=== PATIENT | female | born 1975 | race Caucasian/White ===

== ENCOUNTER 2017-05-30 18:33 | Observation (INO) | payer OTHER ==
[~2017-05-30] VITALS: Ht 167.6 cm; Wt 107.3 kg
[2017-05-30] MEDS ORDERED: SODIUM CHLORIDE 0.9% FLUSH 10 ML FLUSH IV FLUSH PRN (20:45)
[2017-05-30] MEDS ORDERED: NALOXONE HCL 0.4 MG/ML AMP IV PUSH PRN (20:45)
[2017-05-30] MEDS ORDERED: LACTULOSE SYRUP 20 GM/30 ML CUP PO PRN (20:45)
[2017-05-30] MEDS ORDERED: SENNOSIDES 8.6 MG TAB PO PRN (20:45)
[2017-05-30] MEDS ORDERED: MAGNESIUM HYDROXIDE SUSP 30 ML CUP PO PRN (20:45)
[2017-05-30] MEDS ORDERED: ONDANSETRON HCL 4 MG/2 ML VIAL IVP PRN (20:45)
[2017-05-30 21:02] VITALS: BP 119/75; PULSE 91; RESP 18; TEMP 98.3; O2SAT 97
--- NOTE | 2017-05-30 21:42 | HHI.HP ---
HPI Service [facility] Hospitalists Primary Care Physician Unknown Admission Diagnosis Diagnoses: Chief Complaint: abdominal pain Travel History International Travel<30 Days: No Contact w/Intl Traveler <30 Da: No History of Present Illness 42 y/o female with a history of Asthma, on no medication, presented to the ED with complaints of abdominal pain for 2-3 days. She originally presented to [facility], CT of abdomen revealed a large cystic mass in the lower abdomen and upper pelvis, measuring 16.6cm from superior to inferior and 16.8 cm transversely, possible ovarian neoplasm. She was transferred to [place] for evaluation by [facility]/ONC, Dr. Rock has agreed to consult. Patient states for the last 2 days she has been having abdominal discomfort/ indigestion feeling, 7/10, with no radiation, and unable to empty her bladder, worse when laying down. She states she took a bunch of tums without any relief. 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 She does have a history of ovarian cysts in her twenties, last pap was 3 years ago and normal. Denies any weight loss. Denies any chest pain, sob, fever, chills, or dysuria. Review of Systems Except as stated in HPI: all other systems reviewed are Neg Past Family Social History Past Medical History Asthma Past Surgical History right knee arthroscopy Reported Medications Reported Meds & Active Scripts Active No Active Prescriptions or Reported Medications Allergies: Coded Allergies: hydromorphone (Verified Adverse Reaction, Unknown, 05/30/17) Active Ordered Medications Current Medications Medications (Trade) Dose Ordered Sig/Nohemi Route Start Time Stop Time Status Last Admin Sodium Chloride 1,000 ml @ 100 mls/hr Q10H IV 05/30/17 20:33 (NS Flush) 2 ml UNSCH PRN IV FLUSH 05/30/17 20:45 (NS Flush) 2 ml BID IV FLUSH 05/30/17 21:00 (Zofran Inj) 4 mg Q6H PRN IVP 05/30/17 20:45 (Narcan Inj) 0.4 mg UNSCH PRN IV PUSH 05/30/17 20:45 (Milk Of Magnesia Liq) 30 ml Q12H PRN PO 05/30/17 20:45 (Senokot) 17.2 mg Q12H PRN PO 05/30/17 20:45 (Lactulose Liq) 30 ml DAILY PRN PO 05/30/17 20:45 (Morphine Inj) 2 mg Q3H PRN IV PUSH 05/30/17 21:45 (Morphine Inj) 4 mg Q3H PRN IV PUSH 05/30/17 21:45 Family History Dad: Colon cancer, still living Social History Tobacco use: Denies Alcohol use: occasionally Physical Exam Vital Signs Vital Signs Date Time Temp Pulse Resp B/P (MAP) Pulse Ox O2 Delivery O2 Flow Rate FiO2 05/30/17 21:02 98.3 91 18 119/75 (90) 97 Physical Exam GENERAL: This is a well-nourished, well-developed patient, in no apparent distress. SKIN: No rashes, ecchymoses or lesions. Cool and dry. HEAD: Atraumatic. Normocephalic. EYES: Pupils equal round and reactive. ENT: Nose without bleeding, purulent drainage or septal hematoma. Airway patent. NECK: Trachea midline. No JVD or lymphadenopathy. Supple, nontender, no meningeal signs. CARDIOVASCULAR: Regular rate and rhythm without murmurs, gallops, or rubs. RESPIRATORY: Clear to auscultation. Breath sounds equal bilaterally. No wheezes , rales, or rhonchi. GASTROINTESTINAL: Abdomen soft, tender, distended, lower abdominal mass palpated. MUSCULOSKELETAL: Extremities without clubbing, cyanosis, or edema. . No calf tenderness. NEUROLOGICAL: Awake and alert. Motor and sensory grossly within normal limits.. Normal speech. Caprini VTE Risk Assessment Caprini VTE Risk Assessment: No/Low Risk (score <= 1) Caprini Risk Assessment Model Point Value = 1 Point Value = 2 Point Value = 3 Point Value = 5 Age 41-60 Minor surgery BMI > 25 kg/m2 Swollen legs Varicose veins or History of unexplained or recurrent spontaneous Oral contraceptives or hormone replacement Sepsis (< 1 month) Serious lung disease, including pneumonia (< 1 month) Abnormal pulmonary function Acute myocardial infarction Congestive heart failure (< 1 month) History of inflammatory bowel disease Medical patient at bed rest Age 61-74 Arthroscopic surgery Major open surgery (> 45 min) Laparoscopic surgery (> 45 min) Malignancy Confined to bed (> 72 hours) Immobilizing plaster cast Central venous access Age >= 75 History of VTE Family history of VTE Factor V Leiden Prothrombin [id number] Lupus anticoagulant Anticardiolipin antibodies Elevated serum homocysteine Heparin-induced thrombocytopenia Other congenital or acquired thrombophilia Stroke (< 1 month) Elective arthroplasty Hip, pelvis, or leg fracture Acute spinal cord injury (< 1 month) Prophylaxis Regimen Total Risk Factor Score Risk Level Prophylaxis Regimen 0-1 Low Early ambulation 2 Moderate Order ONE of the following: *Sequential Compression Device (SCD) *Heparin 5000 units SQ BID 3-4 Higher Order ONE of the following medications: *Heparin 5000 units SQ TID *Enoxaparin/Lovenox 40 mg SQ daily (WT < 150 kg, CrCl > 30 mL/min) *Enoxaparin/Lovenox 30 mg SQ daily (WT < 150 kg, CrCl > 10-29 mL/min) *Enoxaparin/Lovenox 30 mg SQ BID (WT < 150 kg, CrCl > 30 mL/min) AND/OR *Sequential Compression Device (SCD) 5 or more Highest Order ONE of the following medications: *Heparin 5000 units SQ TID (Preferred with Epidurals) *Enoxaparin/Lovenox 40 mg SQ daily (WT < 150 kg, CrCl > 30 mL/min) *Enoxaparin/Lovenox 30 mg SQ daily (WT < 150 kg, CrCl > 10-29 mL/min) *Enoxaparin/Lovenox 30 mg SQ BID (WT < 150 kg, CrCl > 30 mL/min) AND *Sequential Compression Device (SCD) Assessment and Plan Problem List: (1) Pelvic mass ICD Code: R19.00 - Intra-abdominal and pelvic swelling, mass and lump, unspecified site Assessment and Plan 42 y/o female with a history of Asthma, on no medication, presented to the ED with complaints of abdominal pain for 2-3 days. Pelvic mass, possible ovarian neoplasm Records reviewed from [facility] Abd CT reviewed and shows a large cystic mass in the lower abdomen and upper pelvis, measuring 16.6cm from superior to inferior and 16.8 cm transversely, possible ovarian neoplasm. -Consult [facility] oncology, Dr. Rock -NPO -IVF for hydration -Pain management with IV morphine Leukocytosis, likely reactive, wbc 17.6 Ua negative -CBC in AM, continue to monitor DVT prophylaxis: SCDs Discussed Condition With Patient and RN Miracle Morales May 30, 2017 21:42
[2017-05-30] MEDS ORDERED: MORPHINE SULFATE 2 MG/ML SYRINGE IV PUSH PRN (21:45)
[2017-05-30] MEDS ORDERED: MORPHINE SULFATE 4 MG/ML INJ IV PUSH PRN (21:45)
[2017-05-30] MEDS: SODIUM CHLOR 0.9% 1000 ML INJ 1,000 ML IV SCH (22:45)
[2017-05-30] MEDS: SODIUM CHLORIDE 0.9% FLUSH 10 ML FLUSH IV FLUSH SCH (22:45)
[2017-05-31 04:09] VITALS: BP 109/64; PULSE 76; RESP 16; TEMP 98.5; O2SAT 97
[2017-05-31 08:14] VITALS: BP 122/75; PULSE 80; RESP 18; TEMP 98.4; O2SAT 96
--- NOTE | 2017-05-31 09:28 | MH ---
cc: Agustin Otero MD DATE OF ADMISSION: 05/30/2017 HISTORY OF PRESENT ILLNESS: This is a 42-year-old 2, para 2, who was seen at [facility] [place] where she is employed. The patient has a 16.8 cm large cystic mass in the pelvis, probably ovarian in origin. The patient was transferred to our hospital for surgical evaluation. The patient has a dull, achy pain for the last 3 days. She was not aware of this cyst, but has had cysts in the past. The patient's CT shows no other abnormalities, no free fluid in the pelvis or other complications. PAST MEDICAL HISTORY: Includes asthma and kidney stones. PAST SURGICAL HISTORY: She had breast augmentation. No abdominal surgeries. OB HISTORY: Two vaginal births. MEDICATIONS: None. ALLERGIES: DILAUDID; she develops a very uneasy feeling on Dilaudid, but CAN TAKE MORPHINE OR OTHER NARCOTICS. SOCIAL HISTORY: She does not smoke. She uses alcohol socially in a very light manner. REVIEW OF SYSTEMS: Only significant for a dull, achy pain in her abdomen, especially in her upper abdomen. PHYSICAL EXAMINATION: VITAL SIGNS: The patient's vital signs are stable and afebrile. NECK: Thyroid palpated normally. HEART: Regular rate and rhythm without murmur or gallop. LUNGS: Clear to auscultation bilaterally. ABDOMEN: Soft, nontender, nondistended. Mass could be palpated, but not exquisitely tender. EXTREMITIES: No edema. GENERAL APPEARANCE: The patient was in no acute distress at this time. IMPRESSION: Our impression at this time is a 16.8 cm large cystic pelvic mass, probably ovarian in origin. PLAN: The patient has been counseled about risks, benefits, and alternatives, she will undergo operative laparoscopy with removal of the mass, probably salpingo-oophorectomy. The patient is aware of this. She does not want any more children. She is 41 years old and wants relief of her pain. MD CAROLE Canchola/BRANDEN , 09:10 AM , 09:27 AM
[2017-05-31 09:31] LABS: AUTOMATED NEUTROPHIL # 9.2 TH/MM3 (1.8-7.7); BASOPHIL # 0.1 TH/MM3 (0-0.2); BASOPHIL % 0.6 % (0.0-2.0); EOSINOPHIL # 0.3 TH/MM3 (0-0.4); HEMATOCRIT 38.6 % (35.0-46.0); HEMOGLOBIN 13.6 GM/DL (11.6-15.3); LYMPHOCYTE # 3.5 TH/MM3 (1.0-4.8); MEAN CORPUSCULAR HEMOGLOBIN 30.3 PG (27.0-34.0); MEAN CORPUSCULAR HGB CONC 35.3 % (32.0-36.0); MEAN PLATELET VOLUME 8.7 FL (7.0-11.0); MONO % 6.4 % (0.0-8.0); MONOCYTE # 0.9 TH/MM3 (0-0.9); PLATELET COUNT 332 TH/MM3 (150-450); RED BLOOD COUNT 4.49 MIL/MM3 (4.00-5.30); RED CELL DISTRIBUTION WIDTH 13.4 % (11.6-17.2)
[2017-05-31 09:45] LABS: CALCIUM 8.7 MG/DL (8.5-10.1); CREATININE 0.94 MG/DL (0.50-1.00)
[2017-05-31] MEDS: ACETAMINOPHEN 325 MG TAB PO PRN ×2 (11:49→22:08)
[2017-05-31] MEDS: SODIUM CHLORIDE 0.9% FLUSH 10 ML FLUSH IV FLUSH SCH ×2 (11:49→21:00)
[2017-05-31 12:25] VITALS: BP 111/66; PULSE 81; RESP 17; TEMP 98.4; O2SAT 97
[2017-05-31] MEDS: SODIUM CHLOR 0.9% 1000 ML INJ 1,000 ML IV SCH ×2 (13:06→21:10)
[2017-05-31] MEDS ORDERED: METOPROLOL TARTRATE 25 MG TAB PO PRN (14:45)
[2017-05-31] MEDS ORDERED: POVIDONE IODINE 5% (ANTISEPSIS KIT) 4 APPLICATIONS EACH NARE PRN (14:45)
[2017-05-31] MEDS ORDERED: LACTATED RINGER'S 1000 ML IV PRN (14:45)
[2017-05-31] MEDS ORDERED: SODIUM CHLORID 0.9% 500 ML IV PRN (14:45)
[2017-05-31] MEDS ORDERED: CHLORHEXIDINE GLUCONATE 2 % 1 PACK (2 CLOTHS) TOPICAL PRN (14:45)
[2017-05-31 16:26] VITALS: BP 117/73; PULSE 86; RESP 18; TEMP 98.2; O2SAT 97
[2017-05-31] MEDS ORDERED: BUPIVACAINE/EPINEPHRINE 0.5% PF 30 ML VIAL ONE (16:48)
--- NOTE | 2017-05-31 18:48 | PD.OP ---
Operative Report Date of Surgery: May 31, 2017 Preoperative Diagnosis: (1) Pelvic mass Postoperative Diagnosis: (1) Cyst of left ovary Procedure: operative LSC with LSO Anesthesia: general Surgeon: Agustin Otero Real Estate Underwriter(s): Agustin Candelaria MD May 31, 2017 18:48
[2017-05-31] MEDS ORDERED: PERC5TAB12 PO (18:52)
--- NOTE | 2017-05-31 18:53 | HHI.DCPOC ---
Discharge Care Plan Diagnosis: (1) Cyst of left ovary Report Symptoms to Your Doctor -Temperature above 100.5 degrees -Redness, of incision or excessive or foul smelling drainage -Unusual pain or calf pain -Increased vaginal bleeding -Painful or difficulty urinating -Feelings of extreme sadness or anxiety after 2 weeks Goals to Promote Your Health * To prevent worsening of your condition and complications * To maintain your health at the optimal level Directions to Meet Your Goals Take your medications as prescribed Follow your dietary instruction Follow activity as directed Ensure plenty of rest for recovery Drink fluids for hydration Keep your appointments as scheduled Take your immunizations and boosters as scheduled If your symptoms worsen call your PCP, if no PCP go to Urgent Care Center or Emergency Room Smoking is Dangerous to Your Health. Avoid second hand smoke Call the 24-hour crisis hotline for domestic abuse at Agustin Otero MD May 31, 2017 18:53
--- NOTE | 2017-05-31 18:55 | HHI.DS ---
Admission Date May 30, 2017 at 20:10 Discharge Date: May 31, 2017 Admitting Diagnosis ovarian cyst Diagnosis: (1) Pelvic mass Diagnosis: Principal ICD Codes: R19.00 - Intra-abdominal and pelvic swelling, mass and lump, unspecified site Brief History 42 yo with left ovarian cyst for removal Hospital Course Patient had LSO and is doing well dc home Pt Condition on Discharge: Good Discharge Disposition: Discharge Home Discharge Instructions Diet Instructions: As Tolerated, No Restrictions Activities You Can Perform: Regular-No Restrictions, Pelvic Rest Activities to Avoid: Driving for 24 hrs Follow up Referrals: LEGAL BILLING CLERK - 2 Weeks @ [facility] with Agustin Otero MD New Medications: Oxycodone-Acetaminophen (Percocet) 5-325 mg Tab 1 TAB PO Q4H PRN for PAIN, #30 TAB 0 Refills Agustin Otero MD May 31, 2017 18:55
[2017-05-31] MEDS ORDERED: DO NOT ADM ANY ANTICOAGULANT DRUGS PRN (18:57)
[2017-05-31] MEDS ORDERED: ACETAMINOPHEN 1000 MG/100 ML 100 ML IV ONE (18:57)
[2017-05-31] MEDS ORDERED: MIDAZOLAM HCL 2 MG/2 ML VIAL ONE (19:03)
--- NOTE | 2017-05-31 19:11 | MR ---
cc: Agustin Otero MD, John W MD DATE: 05/30/2017 PROCEDURE: Laparoscopy with left salpingo-oophorectomy and a peritoneal cyst biopsy. PREOPERATIVE DIAGNOSIS: Large pelvic cyst. POSTOPERATIVE DIAGNOSIS: Large left ovarian cyst. COMPLICATIONS: None. FINDINGS: Large cyst. ANESTHESIA: General. COMPLICATIONS: None. ESTIMATED BLOOD LOSS: 75 mL PROCEDURE IN DETAIL: After informed consent, the patient was taken to the operating room where she was placed under general anesthesia, placed in supine position, legs in the Yellow fin stirrups. The abdomen, perineum and the were prepped and draped in normal sterile fashion. After adequate anesthesia was assured. A timeout had been taken. A speculum was placed in the vagina. The cervix was grasped with a single-tooth tenaculum and then a HUMI uterine manipulator was placed into the cervix without difficulty. Gloves were changed. A 5 mm infraumbilical incision was then made after injecting 0.5% Marcaine with epinephrine. We entered the abdomen under direct visualization right on top of the cyst. There was slight oozing coming from the cyst. Then, the right ovary and fallopian tubes were seen as normal. The left fallopian tube and ovary were completely enlarged and attenuated to 17 cm. There were smooth edges and decision was made to drain the cyst to remove it through a minimally invasive procedure. Using a Harmonic scalpel, we came across the fallopian tube and then across the uteroovarian ligament and then coming across infundibulopelvic ligament. We took the vessel without difficulty. Good hemostasis was achieved at all pedicles. Once the cyst was completely amputated, it was drained by placing a hole with the Harmonic scalpel placing the suction into the cyst and then tea-colored fluid was evacuated 1400 mL. At this point, a survey of the cyst was with no abnormalities. They placed a bag inside the 12 mm trocar, which was placed suprapubic, and a 5 mm in the left lower quadrant. We then placed the entire deflated cyst inside the bag, pulled it through the suprapubic incision, extended the incision 1 cm either side and removed this large cyst with the bag. The fascia was then closed with a running lock stitch of Vicryl suture. Good hemostasis was achieved. The pelvis was irrigated well, free from all clots. 1500 mL was used to irrigate the pelvis posterior cul-de-sac. There was a small cyst near the bladder on the anterior cul-de-sac. This was entered, had yellow fluid within it, so it was removed to be sent to pathology for a biopsy. The peritoneal cyst was removed just from the left of center in the anterior cul-de-sac. The posterior cul-de-sac was free for any abnormalities. Right ovary and fallopian tube were completely normal. At the end of the procedure, once again we inspected the infundibulopelvic ligament down pelvic sidewalls and good hemostasis was achieved. There was no active bleeding. CO2 was drained. Pressure was taken off. There was still no active bleeding. The 5 mm trocars were closed at the umbilicus and the left lower quadrant and the 10 mm was closed at the skin with subcuticular stitch. The patient tolerated the procedure well. She was taken to the recovery room in stable condition. Lap and instrument counts were reported as correct. All instruments removed from the abdomen and the vagina. Agustin Otero MD JWYvon/ , 06:38 PM , 07:11 PM
[2017-05-31] MEDS ORDERED: *ONDANSETRON 4 MG VIAL PERIprocedural Use ONLY ONE (19:19)
[2017-05-31] MEDS ORDERED: *PROMETHAZINE 25 MG/ML VIAL PERIprocedural use ONLY ONE (20:26)
[2017-05-31 22:00] VITALS: BP 119/80; PULSE 53; RESP 16; TEMP 98.3; O2SAT 94
[2017-06-01] VITALS: BP 110/66; PULSE 94; RESP 18; TEMP 98.1; O2SAT 96
[2017-06-01] MEDS: SODIUM CHLOR 0.9% 1000 ML INJ 1,000 ML IV SCH (02:33)
[2017-06-01 04:00] VITALS: BP 110/71; PULSE 81; RESP 18; TEMP 98.1; O2SAT 99
[2017-06-01] MEDS: ACETAMINOPHEN 325 MG TAB PO PRN ×2 (04:19→10:09)
[2017-06-01 08:20] VITALS: BP 119/69; PULSE 84; RESP 20; TEMP 98.2; O2SAT 97
--- NOTE | 2017-06-01 08:20 | HHI.OB ---
Subjective Post Operative Day: 1 Remarks doing well Objective Vitals/I&O Vital Signs Date Time Temp Pulse Resp B/P (MAP) Pulse Ox O2 Delivery O2 Flow Rate FiO2 06/01/17 04:00 98.1 81 18 110/71 (84) 99 06/01/17 00:00 98.1 94 18 110/66 (81) 96 05/31/17 22:00 98.3 53 16 119/80 (93) 94 05/31/17 21:30 98.0 108 16 109/68 (82) 98 Room Air 05/31/17 21:15 89 16 103/61 (75) 96 Room Air 05/31/17 21:00 88 16 108/63 (78) 96 Room Air 05/31/17 20:45 97 16 125/71 (89) 100 Room Air 05/31/17 20:30 99 16 121/74 (90) 99 Room Air 05/31/17 20:00 94 20 116/60 (78) 99 Room Air 05/31/17 19:45 96 20 110/57 (74) 97 Room Air 05/31/17 19:30 92 16 103/60 (74) 97 Room Air 05/31/17 19:15 99 14 100/59 (73) 95 Room Air 05/31/17 19:00 97 16 104/59 (74) 94 Room Air 05/31/17 18:55 98.0 104 19 117/58 (77) 97 Room Air 05/31/17 16:26 98.2 86 18 117/73 (88) 97 05/31/17 12:25 98.4 81 17 111/66 (81) 97 Intake & Output 06/01/17 06/01/17 07:00 19:00 Intake Total 898 ml Output Total 2800 ml Balance -1902 ml Intake Oral 250 ml IV Total 648 ml Output Urine Total 2800 ml # Voids 8 Result Diagram: 05/31/17 0906 05/31/17 0807 Objective Remarks GENERAL: Well-nourished, well-developed patient. ABDOMEN/GI: Abdomen soft, non-tender, bowel sounds present. Incision: Clean, dry and intact. Fundus: Firm, non-tender at umbilicus. GENITOURINARY: Light to moderate bleeding. EXTREMITIES: No cyanosis or edema, non-tender, without signs of DVT. Medications and IVs Current Medications Medications (Trade) Dose Ordered Sig/Nohemi Route Start Time Stop Time Status Last Admin Sodium Chloride 1,000 ml @ 100 mls/hr Q10H IV 05/30/17 20:33 05/31/17 21:10 (NS Flush) 2 ml UNSCH PRN IV FLUSH 05/30/17 20:45 (NS Flush) 2 ml BID IV FLUSH 05/30/17 21:00 05/31/17 21:00 (Zofran Inj) 4 mg Q6H PRN IVP 05/30/17 20:45 (Narcan Inj) 0.4 mg UNSCH PRN IV PUSH 05/30/17 20:45 (Milk Of Magnesia Liq) 30 ml Q12H PRN PO 05/30/17 20:45 (Senokot) 17.2 mg Q12H PRN PO 05/30/17 20:45 (Lactulose Liq) 30 ml DAILY PRN PO 05/30/17 20:45 (Morphine Inj) 2 mg Q3H PRN IV PUSH 05/30/17 21:45 05/30/17 22:45 (Morphine Inj) 4 mg Q3H PRN IV PUSH 05/30/17 21:45 (Tylenol) 650 mg Q6HR PRN PO 05/31/17 12:00 06/01/17 04:19 Lactated Ringer's 1,000 ml @ 30 mls/hr Q24H PRN IV 05/31/17 14:45 06/03/17 14:44 Sodium Chloride 500 ml @ 30 mls/hr [id number] PRN IV 05/31/17 14:45 06/03/17 14:44 (Lopressor) 25 mg BLISTER RUST ERADICATOR PRN PO 05/31/17 14:45 06/03/17 14:44 (Betadine 5% Antisepsis Kit) 1 applic BLISTER RUST ERADICATOR PRN EACH NARE 05/31/17 14:45 06/03/17 14:44 (Chlorhexidine 2% Cloth) 3 pack BLISTER RUST ERADICATOR PRN TOPICAL 05/31/17 14:45 06/03/17 14:44 Miscellaneous Information ALL NURSING DEPARTME... UNSCH PRN .XX 05/31/17 18:57 06/01/17 18:56 Assessment/Plan Problem List: (1) Cyst of left ovary ICD Codes: N83.202 - Unspecified ovarian cyst, left side Agustin Otero MD Jun 01, 2017 08:20
[2017-06-01 12:26] VITALS: BP 115/67; PULSE 93; RESP 20; TEMP 98.2; O2SAT 98
== END 2017-06-01 14:10 | disposition home or self-care (01) ==
LOC: NEPHCDU 20:10 → H1EA 05-31 21:57
PROVIDERS: ADMIT Obstetrics & Gynecology; ATTEND Obstetrics & Gynecology
DX: D27.1 Benign neoplasm of left ovary (principal); K66.8 Other specified disorders of peritoneum; J45.909 Unspecified asthma, uncomplicated; R19.00 Intra-abdominal and pelvic swelling, mass and lump, unspecified site; D72.829 Elevated white blood cell count, unspecified; Z87.442 Personal history of urinary calculi
CPT/HCPCS: 00840; 58661; 80048; 84702; 85025; 88305; 88307; 88311; 96361; 96374; G0378; J0131; J2250; J2270; J2405; J2550; J3010; J7030